=== PATIENT | male | born 1960 | race Caucasian/White ===

== ENCOUNTER 2017-02-05 10:22 | Day surgery (SDC) | payer OTHER ==
[2017-02-01 15:19] VITALS: BMI 44.4
[~2017-02-05 10:22] MED LIST: DEXAMETHASONE SOD PHOSPHATE 10 MG/ML 1 ML VIAL IV ONE; HYDROmorphone 1 MG/ML 1 ML SYRINGE IVP PRN; LACTATED RINGERS 1,000 ML IV SCH; ONDANSETRON 4 MG/2 ML VIAL IVP ONE
[2017-02-05 10:48] VITALS: TEMP 97
[2017-02-05] MEDS ORDERED: LACTATED RINGERS 1,000 ML IV ONE (11:02)
[2017-02-05] MEDS ORDERED: LIDOCAINE 1% INJ 10MG/ML (20 ML MDV) ONE (11:51)
[2017-02-05] MEDS ORDERED: PROPOFOL 10 MG/ML 20 ML VIAL IV ONE (11:51)
--- NOTE | 2017-02-05 12:19 | P.PCN ---
Date of Procedure: 02/05/17 Preoperative Diagnosis: Postoperative Diagnosis: Procedure(s) Performed: Procedure: Colonoscopy and polypectomy Preoperative diagnosis: Screening for neoplasia, patient has history of polyps. Postoperative diagnosis: 2 sigmoid polyps snared but no large polyps or cancer. Preparation: HalfLytely prep. Sedation: Was provided by anesthesia. Brief clinical history: The patient is a 56-year-old male who is scheduled for this evaluation for screening for neoplasia because of history of polyps. His prior exam was around 5 years ago. At this time, he has no abdominal complaints , bleeding or anemia. Procedure: With the patient on his left lateral decubitus position and after informed consent and adequate sedation, the perianal area was inspected and it did not show any fissures or fistulas. There were no masses felt on digital rectal examination. The Olympus CFQ 160L video colonoscope was then inserted in the rectum and the usual fashion and advanced to the cecum. Unfortunately, the preparation was less than ideal and there was thick secretions and fecal debris that were obscuring the view in some areas. I saw two small polyps in the sigmoid which I snared and retrieved by suction. No large polyps or tumors were seen. No obvious diverticular disease was noted either. I retroflexed the endoscope in the rectum before the endoscope was withdrawn. The patient tolerated the procedure well. Plan: The patient was reassured. In light of his preparation, I am recommending repeat exam in 3 years before going again with 5-year schedule. He will follow up with you as planned. Implants: Indications for Procedure: Operative Findings: Description of Procedure:
[2017-02-05 12:30] VITALS: BP 119/87; PULSE 76; RESP 16
== END 2017-02-05 13:12 | disposition home or self-care (01) ==
LOC: ORWHC2ENDO 10:22
DX: Z12.11 Encounter for screening for malignant neoplasm of colon (principal); Z86.010 Personal history of colon polyps; I10 Essential (primary) hypertension; E66.01 Morbid (severe) obesity due to excess calories; Z79.82 Long term (current) use of aspirin; Z79.899 Other long term (current) drug therapy; Z99.89 Dependence on other enabling machines and devices; Z96.643 Presence of artificial hip joint, bilateral; Z68.41 Body mass index [BMI] 40.0-44.9, adult
CPT/HCPCS: 88305; 45385; J2001; J2704

== ENCOUNTER → 2017-07-04 | Outpatient (CLI) | payer OTHER ==
--- NOTE | 2017-07-04 11:36 | PN ---
PROGRESS NOTE DATE OF SERVICE: 07/04/2017 A 56-year-old gentleman who has been followed in the Sleep Center for treatment of obstructive sleep apnea-hypopnea syndrome. Patient continued to use his BiPAP equipment every night without any problems related to the pressure, humidification or mask fitting. I checked his BiPAP unit. Usage is 29/30 nights for more than 4 hours. For the last night usage is 8.7 hours. BiPAP pressure is 12/8. No snoring while on treatment with BiPAP. [place] Sleepiness Scale is 1. MEDICATIONS: Lisinopril, glucosamine, lutein. PHYSICAL EXAM: Patient in no distress. BP 96/58, HR 78, RR 16, height 5, 8, weight 342, BMI 52, temp 96.9, oxygen saturation on room air 99%. OROPHARYNX: Extremely low position of soft palate. ABDOMEN: Obese. Neck Supple, no JVD. Thyroid is not palpable. LUNGS Clear to percussion and to auscultation. Good air exchange. No wheezing or rhonchi. HEART S1, S2 regular. No murmurs, gallops, or rubs. EXTREMITIES No clubbing or cyanosis. CARDIAC CATH LAB TECHNOLOGIST Awake, alert, and oriented X3. Cranial nerves 2 to 7 intact. There is no fasciculation or atrophy. noted. No focal deficits observed. IMPRESSION: 1. Obstructive sleep apnea-hypopnea syndrome on control with BiPAP at a pressure of 12/8 cm of water. Patient demonstrated practically 100% compliance with treatment benefitting from treatment. 2. Morbid obesity, body mass index 52. Patient lost weight from 358 pounds down to 342 pounds now. 3. Status post lap band surgery. 4. Hypertension. 5. History of sinusitis. 6. Status post bilateral total hip replacement. PLAN: 1. Continue treatment with BiPAP every night for the whole night. 2. Prescription for all necessary BiPAP supplies including mask, tube, filters. 3. Continue losing weight. 4. No driving if feeling any sleepiness. Thank you very much for allowing me to participate in the management of your patient. Sincerely, Ming Blue MD, PhD, FAASM Diplomat of [place] [employer] [place] [employer] Instructional Developer of [facility] [place] MMODL / IJN: [id number] /
== END | disposition home or self-care (01) ==
LOC: SLEEP 10:11
PROVIDERS: ATTEND Internal Medicine
DX: G47.33 Obstructive sleep apnea (adult) (pediatric) (principal); E66.01 Morbid (severe) obesity due to excess calories; I10 Essential (primary) hypertension; J32.9 Chronic sinusitis, unspecified; Z96.643 Presence of artificial hip joint, bilateral; Z98.84 Bariatric surgery status; Z79.899 Other long term (current) drug therapy

== ENCOUNTER → 2018-06-12 | Outpatient (CLI) | payer OTHER ==
--- NOTE | 2018-06-12 17:39 | PN ---
PROGRESS NOTE DATE OF SERVICE: 06/12/2018 57-year-old gentleman who has been followed in Sleep Center for treatment of obstructive sleep apnea-hypopnea syndrome. The patient successfully continued to use his CPAP equipment every night for the whole night without significant problems related to mask fitting, pressure or humidification. He is using CPAP equipment every night and no snoring with the machine. [place] Sleepiness Scale today is 1. He is getting his supplies in time. I checked his BiPAP unit. Pressure is 12/8 cm of water. Usage is 100% more than 4 hours. Average usage is 7.5 hours per night. MEDICATIONS: Lisinopril, glucosamine, lutein. PHYSICAL EXAM: Patient in no distress. BP 125/76, HR 79, RR 16, height 5 feet 8 inches, weight 330.0, body mass index 50.7. The patient lost 12 pounds since previous visit. Temperature 97.8, oxygen saturation at room air 100%. Oropharynx extremely low position of soft palate. ABDOMEN: Obese. Neck Supple, no JVD. Thyroid is not palpable. LUNGS Clear to percussion and to auscultation. Good air exchange. No wheezing or rhonchi. HEART S1, S2 regular. No murmurs, gallops, or rubs. ABDOMEN: Obese. Soft and nontender. Bowel sounds are present. No organomegaly appreciated. EXTREMITIES No clubbing or cyanosis. 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 Cranial nerves 2 to 7 intact. There is no fasciculation or atrophy. noted. No focal deficits observed. IMPRESSION: 1. Obstructive sleep apnea-hypopnea syndrome. The patient demonstrated 100% compliance with treatment benefitting from treatment. 2. Morbid obesity. Body mass index 50.7. 3. Status post lap band surgery. 4. Hypertension. 5. History of sinusitis. 6. Status post bilateral total hip replacement. 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 PLAN: 1. Patient will continue to use BiPAP equipment every night for the whole night. 2. Losing weight. 3. Sleep hygiene with regular time bed for at least 8 hours. 4. Precautions related to driving. No driving if feeling sleepiness. Patient is aware about civil and criminal liability for unsafe driving. 5. Will maintain all necessary prescription for CPAP supplies including mask, tube, filters. Thank you very much for allowing me to participate in management of your patient. Sincerely, Ming Blue MD, PhD, FAASM Diplomat of [place] [employer] Specialties [place] Board of Internal Medicine Bender Helper of [facility] [place] MMPAMELA / ALCON: [id number] /
== END | disposition home or self-care (01) ==
LOC: SLEEP 14:35
PROVIDERS: ATTEND Internal Medicine
DX: G47.33 Obstructive sleep apnea (adult) (pediatric) (principal); E66.01 Morbid (severe) obesity due to excess calories; I10 Essential (primary) hypertension; Z68.43 Body mass index [BMI] 50.0-59.9, adult; Z99.89 Dependence on other enabling machines and devices; Z87.09 Personal history of other diseases of the respiratory system; Z96.643 Presence of artificial hip joint, bilateral; Z79.899 Other long term (current) drug therapy; Z98.84 Bariatric surgery status

== ENCOUNTER → 2019-06-04 | Outpatient (CLI) | payer OTHER ==
--- NOTE | 2019-06-04 16:31 | PN ---
PROGRESS NOTE DATE OF SERVICE: 06/04/2019 Bcyer-[id number]-phx gentleman who has been followed in Sleep Center for treatment of obstructive sleep apnea-hypopnea syndrome. The patient continued to use equipment every night for the whole night. No problems with pressure, mask fitting, or humidification. [place] Sleepiness Scale today is only 1. I checked BiPAP unit. Unit is quite old. BiPAP pressure is 12/8 cm of water. Usage is 100% of night, more than 4 hours with average usage 7.6 hours per night. MEDICATIONS: Lisinopril, glucosamine, lutein. PHYSICAL EXAM: During physical examination, patient in no distress. BP 124/89, HR 82, RR 16, height 5 feet 7.5 inches, weight 342 pounds, body mass index 52.7, temperature 97.4, oxygen saturation on room air 98%. OROPHARYNX: Extremely low soft palate. Mallampati IV. HEENT: PERRLA, EOMI, evaluation of oropharynx showed tongue protrudes midline. NECK: Supple, no JVD. Thyroid is not palpable. LUNGS: Clear to percussion and to auscultation. Good air exchange. No wheezing or rhonchi. HEART: S1, S2 regular. No murmurs, gallops, or rubs. ABDOMEN: Soft and nontender. Bowel sounds are present. No organomegaly appreciated. Obese. EXTREMITIES: No clubbing or cyanosis. TRAVEL CONSULTANT: Awake, alert, and oriented X3. Cranial nerves 2 to 7 intact. There is no fasciculation or atrophy. noted. No focal deficits observed. IMPRESSION: 1. Obstructive sleep apnea-hypopnea syndrome. The patient demonstrated 100% compliance with treatment benefiting from treatment. 2. Hypertension. 3. Obesity. Body mass index 52.7. 4. Status post Lap-Band surgery. 5. History of sinusitis. 6. Status post bilateral hip replacement. 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 PLAN: 1. Patient will continue to use BiPAP equipment every night for the whole night. 2. Prescription to replace BiPAP unit with the BiPAP pressure 12/8 cm of water. 3. Followup visit in 30 to 90 days after patient receives new CPAP unit to check compliance with new machine and to check apnea-hypopnea index. 4. Losing weight. 5. No driving if feeling any sleepiness. Thank you very much for allowing me to participate in management of your patient. Sincerely, Ming Blue MD, PhD, FAASM Diplomat of [place] [employer] Specialties [place] Board of Internal Medicine Can Doffer of [facility] [place] MMPAMELA / ALCON: [id number] /
== END | disposition home or self-care (01) ==
LOC: SLEEP 13:28
PROVIDERS: ATTEND Internal Medicine
DX: G47.33 Obstructive sleep apnea (adult) (pediatric) (principal); I10 Essential (primary) hypertension; E66.9 Obesity, unspecified; Z68.43 Body mass index [BMI] 50.0-59.9, adult; Z87.09 Personal history of other diseases of the respiratory system; Z96.643 Presence of artificial hip joint, bilateral; Z46.51 Encounter for fitting and adjustment of gastric lap band; Z79.899 Other long term (current) drug therapy

== ENCOUNTER 2020-01-05 10:25 | Day surgery (SDC) | payer OTHER ==
[2019-12-31 14:33] VITALS: BMI 43.0
[~2020-01-05 10:25] MED LIST changes: -DEXAMETHASONE SOD PHOSPHATE 10 MG/ML 1 ML VIAL IV ONE; -HYDROmorphone 1 MG/ML 1 ML SYRINGE IVP PRN; +LIDOCAINE 1% (10MG/ML) FOR IV START INTRADERMA PRN; -ONDANSETRON 4 MG/2 ML VIAL IVP ONE
[2020-01-05 10:51] VITALS: TEMP 98.4
[2020-01-05] MEDS ORDERED: PROPOFOL 10 MG/ML 20 ML VIAL IV ONE (12:38)
[2020-01-05] MEDS ORDERED: LIDOCAINE 1% INJ 10MG/ML (20 ML MDV) ONE (12:38)
[2020-01-05] MEDS ORDERED: SODIUM CHLORIDE 0.9% 500 ML 500 ML IV ONE (13:03)
--- NOTE | 2020-01-05 13:07 | P.PCN ---
Date of Procedure: 01/05/20 Description of Procedure: BRIEF HISTORY: Patient is a 59-year-old male presented for outpatient colonoscopy for evaluation of a history of colon polyps. He denies any family history of colon cancer, abdominal pain, change in bowel habits or blood per rectum. PROCEDURE PERFORMED: Colonoscopy with polypectomy. PREOPERATIVE DIAGNOSIS: History of colon polyps, last colonoscopy approximately 4 years ago per the patient's recollection. ESTIMATED BLOOD LOSS: Minimal. IV sedation per Anesthesia. PROCEDURE: After informed consent was obtained, the patient, was brought into the endoscopy unit. IV sedation was administered by Anesthesia under continuous monitoring. Digital rectal examination was normal. Initially the Olympus CF-190 flexible video colonoscope was then inserted in the rectum, gradually advanced into the cecum without any difficulty. Careful examination was performed as the scope was gradually being withdrawn. Ileocecal valve and the appendiceal orifice were visualized and appeared normal. Prep was excellent. Mucosa of the cecum, ascending colon, transverse colon, descending colon, sigmoid colon, and rectum appeared normal. 2 diminutive polyps measuring 1 and 2 mm in size removed from the rectum, with cold forcep polypectomy. Retroflexion was performed in the rectum and no lesions were seen, low-grade internal hemorrhoids noted. The patient tolerated the procedure well. IMPRESSION: Normal-appearing colon from rectum to cecum. 2 diminutive rectal polyps removed with cold forceps polypectomy. RECOMMENDATIONS: Findings of this examination were discussed with the patient. Okay to resume diet. Okay to resume medications. Await biopsy results from polypectomies. Recommend repeat colonoscopy in 7 years given history of colon polyps.
[2020-01-05 13:28] VITALS: BP 95/64; PULSE 81; RESP 18
== END 2020-01-05 13:43 | disposition home or self-care (01) ==
LOC: ORWHC2ENDO 10:25
PROVIDERS: ATTEND Internal Medicine
DX: Z12.11 Encounter for screening for malignant neoplasm of colon (principal); K62.1 Rectal polyp; K64.8 Other hemorrhoids; Z86.010 Personal history of colon polyps; I10 Essential (primary) hypertension; G47.33 Obstructive sleep apnea (adult) (pediatric); Z87.891 Personal history of nicotine dependence; Z79.899 Other long term (current) drug therapy; Z79.82 Long term (current) use of aspirin; Z98.890 Other specified postprocedural states; Z96.643 Presence of artificial hip joint, bilateral; Z98.84 Bariatric surgery status; Z99.89 Dependence on other enabling machines and devices
CPT/HCPCS: 45380; J2001; J2704; 88305

== ENCOUNTER → 2020-05-19 | Outpatient (CLI) | payer OTHER ==
--- NOTE | 2020-05-19 20:56 | SFUN ---
SLEEP CENTER FOLLOW UP NOTE DATE OF SERVICE: 05/19/2020 This patient is a 59-year-old gentleman who has been followed in Sleep Center for treatment of obstructive sleep apnea-hypopnea syndrome. The patient continues to use BiPAP equipment every night for the whole night. No snoring with the machine. [place] Sleepiness Scale is 1. He denied any excessive daytime sleepiness. I checked his BiPAP unit. Pressure is 12/8 cm of water. Usage is 30/30 nights for more than 4 hours. Average usage is 7.4 hours per night. Machine does not have information about the apnea-hypopnea index. MEDICATIONS: Lisinopril, aspirin 81 mg once a day, multivitamins. PHYSICAL EXAMINATION: GENERAL: A pleasant patient in no distress. VITAL SIGNS: BP 119/72, HR 96, RR 16, height 5 feet 7-1/2 inches, weight 335.8 pounds, BMI 51.6. The patient has lost about 7 pounds since his previous visit. Temperature 97.6, oxygen saturation on room air 96%. HEENT: PERRLA, EOMI. Evaluation of oropharynx showed tongue protrudes midline. Extremely low position of soft palate. Mallampati IV. NECK: Supple. No JVD. Thyroid is not palpable. LUNGS: Clear to percussion and to auscultation. Good air exchange. No wheezing or rhonchi. HEART: S1, S2 regular. No murmurs, gallops or rubs. ABDOMEN: Obese. EXTREMITIES: No clubbing or cyanosis. MATERIALS SCIENTIST: Awake, alert, and oriented X3. Cranial nerves 2 to 7 intact. There is no fasciculation or atrophy. noted. No focal deficits observed. IMPRESSION: 1. Obstructive sleep apnea-hypopnea syndrome. The patient demonstrated 100% compliance with treatment, benefitting from treatment. 2. Obesity. BMI 51.6. 3. Hypertension. 4. Status post lap band surgery. 5. History of sinusitis. 6. Status post bilateral hip replacement. 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 PLAN: 1. Patient will continue to use PAP equipment every night for the whole night. 2. Sleep hygiene with regular time in bed for at least 7-1/2 to 8 hours. 3. Precautions related to driving. No driving if feeling sleepiness. 4. I will maintain all necessary prescription for PAP supplies including mask, tube, filters. 5. Watching weight. 6. No driving if feeling any sleepiness. The patient promised to follow recommendations. Patient is aware of civil and criminal liability for unsafe driving. 7. Follow-up visit in 6 months or earlier if patient has any problems. Thank you very much for allowing me to participate in the management of your patient. Sincerely, Ming Blue MD, PhD, FAASM Diplomat of [place] [employer] Specialties [place] Board of Internal Medicine Binder Lockstitch of [facility] [place] MMODL / IJN: [id number] /
== END | disposition home or self-care (01) ==
LOC: SLEEP 13:57
PROVIDERS: ATTEND Internal Medicine
DX: G47.33 Obstructive sleep apnea (adult) (pediatric) (principal); I10 Essential (primary) hypertension; E66.9 Obesity, unspecified; Z99.89 Dependence on other enabling machines and devices; Z68.43 Body mass index [BMI] 50.0-59.9, adult; Z98.84 Bariatric surgery status; Z87.09 Personal history of other diseases of the respiratory system; Z96.643 Presence of artificial hip joint, bilateral

== ENCOUNTER → 2020-12-29 | Outpatient (CLI) | payer OTHER ==
--- NOTE | 2020-12-29 21:11 | SFUN ---
SLEEP CENTER FOLLOW UP NOTE DATE OF SERVICE: 12/29/2020 INTERVAL HISTORY: 60-year-old gentleman has been followed in Sleep Center for treatment of obstructive sleep apnea-hypopnea syndrome. The patient continues to use his BiPAP equipment every night for the whole night. No snoring with BiPAP according to the patient. [place] Sleepiness Scale was 2, which is in normal range. I checked BiPAP unit pressure is 12/8 cm of water. Usage is 30/30 nights for more than 4 hours with average usage 7.6 hours per night. MEDICATIONS: Lisinopril 10 mg once a day. Senna 2 tablets a day. Aspirin 81 mg once a day. Probiotic, multivitamins. PHYSICAL EXAMINATION: GENERAL: Patient in no distress. BP 123/68, HR 78, RR 16, height 5 feet and 7.5, weight 331. Patient lost 4 pounds since previous visit. Body mass index 51. Temperature 97.3, oxygen saturation at room air 99%. HEENT: PERRLA, EOMI. Oropharynx extremely low position of soft palate. Mallampati IV. NECK: Supple, no JVD. Thyroid is not palpable. LUNGS: Clear to percussion and to auscultation. Good air exchange. No wheezing or rhonchi. HEART: S1, S2 regular. No murmurs, gallops, or rubs. ABDOMEN: Obese. Soft and nontender. Bowel sounds are present. No organomegaly appreciated. EXTREMITIES: No clubbing or cyanosis. FIELD UNDERWRITER: Awake, alert, and oriented X3. Cranial nerves 2 to 7 intact. There is no fasciculation or atrophy. noted. No focal deficits observed. IMPRESSION: 1. Obstructive sleep apnea-hypopnea syndrome. Patient demonstrated 100% compliance with treatment benefitting from treatment. 2. BMI 51.0. Patient lost 4 pounds since previous visit. 3. Hypertension. 4. Status post lap band surgery. 5. History of sinusitis. 6. Status post bilateral hip replacement. 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 PLAN: 1. The patient's CPAP unit does not have reading for apnea-hypopnea index. The to replace unit in the future. 2. Sleep hygiene with regular time in bed for at least 7-1/2 to 8 hours. 3. Precautions related to driving. No driving if feeling sleepiness. 4. I will maintain all necessary prescription for PAP supplies including mask, tube, filters. 5. Watching weight. 6. Follow-up visit in 6 months or earlier if patient has any problems. 7. No driving if feels any sleepiness. The patient promised to follow recommendation. Patient is aware about civil and criminal liability for unsafe driving. Time I spent with the patient and in documentation for more than 30 minutes. Thank you very much for allowing me to participate in management of your patient. Sincerely, Ming Blue MD, PhD, FAASM Diplomat of [place] [employer] Specialties [place] [employer] of Internal Medicine Malariologist of [facility] [place] MMODL / IJN: [id number] /
== END ==
LOC: SLEEP 10:10
PROVIDERS: ATTEND Internal Medicine
DX: G47.33 Obstructive sleep apnea (adult) (pediatric) (principal); I10 Essential (primary) hypertension; E66.9 Obesity, unspecified; Z98.84 Bariatric surgery status; Z87.09 Personal history of other diseases of the respiratory system; Z96.643 Presence of artificial hip joint, bilateral; Z68.43 Body mass index [BMI] 50.0-59.9, adult; Z79.899 Other long term (current) drug therapy

== ENCOUNTER → 2022-02-01 | Outpatient (CLI) | payer OTHER ==
--- NOTE | 2022-02-01 15:31 | P.PN ---
Subjective DATE: 02/01/2022 FOLLOW UP VISIT. Patient with obstructive sleep apnea hypopnea syndrome return to sleep center for follow-up visit. Information from previous visit have been reviewed. Patient is using PAP equipment every night for the whole night, getting PAP supplies in time. The patient does not have significant problems with the mask, PAP unit and humidification. [place] sleepiness scale is 1. I checked BiPAP unit. BiPAP unit pressure 12/8 cm H2O. Usage is 100 % for more then 4 hours, average 6.9 hours per night. Unit is old no information about apnea-hypopnea index and leak. MEDICATIONS:1. Lisinopril once a day 2. Aspirin 81 mg once a day 3. Probiotics During physical exam: GENERAL: A pleasant patient without any distress. VITAL SIGNS: BP 116/83, HR 66, RR 18 , weight 340.2, patient increase weight on 9 pounds, temperature 97.2, oxygen saturation at room air 97 % . HEENT: PERRLA, EOMI.low position of soft palate, Mallapati 4 . NECK: Supple. No JVD. LUNGS: Clear to percussion and to auscultation. Good air exchange. No wheezing or rhonchi. HEART: S1, S2 regular. ABDOMEN: Soft and nontender. Obese EXTREMITIES: No clubbing or cyanosis. LAPPER: Awake, alert, and oriented x3. No focal deficit. Impressions: 1. Obstructive sleep apnea-hypopnea syndrome. Patient demonstrated great compliance with treatment, benefiting from treatment. BiPAP unit is old, does not have information about apnea-hypopnea index. 2. Obesity patient increase his weight on 9 pounds comparing to the previous visit. 3. Hypertension. 4. Status post lap band surgery. 5. Status post bilateral hip replacement. 6. History of sinusitis. 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 . Plan: 1. Continue using PAP equipment every night for the whole night. Prescription for replacement of BiPAP unit. 2. To change air filter at least 1-2 times per month. 3. PAP unit should stay lower then position of the head. 4. Advised patient to remove all remaining water from humidifier canister daily and make it dry after each usage. Refill canister with fresh distilled water before each usage. 5. Sleep hygiene with regular time in bed for at least 8 hours. 6. Precautions related to driving. No driving if feel any sleepiness. 7. I will maintain prescription for PAP supplies including mask, tube, filters. 8. Follow up visit in 12 months after patient will get new BiPAP unit. 9. Watching and losing weight. Thank you very much for allowing me to participate in the management of your patient. Ming Blue MD, PhD, FAASM. Diplomat of [place] [employer], Sleep Medicine Board by [place] [employer] Medicine Bench Assembly Inspector of [facility] [place]
== END ==
LOC: SLEEP 14:59
PROVIDERS: ATTEND Internal Medicine
DX: G47.33 Obstructive sleep apnea (adult) (pediatric) (principal); Z99.89 Dependence on other enabling machines and devices; E66.9 Obesity, unspecified; I10 Essential (primary) hypertension; Z98.84 Bariatric surgery status; Z96.643 Presence of artificial hip joint, bilateral; Z87.09 Personal history of other diseases of the respiratory system; Z79.899 Other long term (current) drug therapy; Z87.891 Personal history of nicotine dependence

== ENCOUNTER 2023-04-14 12:11 | Emergency (ER) | payer OTHER ==
[2023-04-14] MEDS ORDERED: LIDOCAINE 1% INJ 10MG/ML (20 ML MDV) SQ ONE (12:46)
[2023-04-14] MEDS ORDERED: BACITRACIN OINT 1 EACH PACKET TOPICAL ONE (13:10)
[2023-04-14] MEDS ORDERED: DIPH,PERTUS(ACELL)TETVAC-LF 0.5 ML VIAL IM ONE (13:10)
--- NOTE | 2023-04-14 13:12 | ED ---
Wound/Laceration HPI - General Chief Complaint: Wound/Laceration Stated Complaint: right finger cut Time Seen by Provider: 04/14/23 12:31 Source: patient, RN notes reviewed Mode of arrival: ambulatory Limitations: no limitations - History of Present Illness Initial Comments: 62-year-old male presents emergency Department chief complaint of finger lacerat ion right index finger. Patient states he was using a knife to cut some visit denies states it slipped cutting his finger. Patient states he is not up-to-date on his tetanus. Patient denies any decreased range of motion no paresthesias patient offers no complaints. - Related Data Home Medications Medication Instructions Recorded Confirmed Aspirin [Adult Low Dose Aspirin EC] 81 mg PO DAILY 02/01/17 01/05/20 lisinopriL [Zestril] 10 mg PO PC-SUPPER 02/05/17 01/05/20 Cholecalciferol (Vitamin D3) 50 mcg PO DAILY 12/31/19 01/05/20 [Vitamin D3] Lactobacillus Acidophilus 1 each PO DAILY 12/31/19 01/05/20 [Acidophilus] Sennosides/Docusate Sodium 2 each PO DAILY 12/31/19 01/05/20 [Senna-S Laxative Tablet] Allergies Allergy/AdvReac Type Severity Reaction Status Date / Time No Known Allergies Allergy Verified 04/14/23 12:19 Review of Systems ROS Statement: Those systems with pertinent positive or pertinent negative responses have been documented in the HPI. ROS Other: All systems not noted in ROS Statement are negative. Past Medical History Past Medical History: Hypertension, Sleep Apnea/CPAP/BIPAP Additional Past Medical History / Comment(s): uses BIPAP, hx. colon polyps History of Any Multi-Drug Resistant Organisms: None Reported Past Surgical History: Bariatric Surgery, Joint Replacement Additional Past Surgical History / Comment(s): monica hip replacements, lap band, sinus surg., deviated septum repair Past Anesthesia/Blood Transfusion Reactions: No Reported Reaction Past Psychological History: No Psychological Hx Reported Smoking Status: Never smoker Past Alcohol Use History: None Reported Past Drug Use History: None Reported - Past Family History Father Family Medical History: Cancer Additional Family Medical History / Comment(s): lymphoma General Exam Limitations: no limitations General appearance: alert, in no apparent distress Head exam: Present: atraumatic, normocephalic, normal inspection Respiratory exam: Present: normal lung sounds bilaterally. Absent: respiratory distress, wheezes, rales, rhonchi, stridor Cardiovascular Exam: Present: regular rate, normal rhythm, normal heart sounds. Absent: systolic murmur, diastolic murmur, rubs, gallop, clicks Extremities exam: Present: other (Right hand index finger distal portion there is a 1 cm laceration full range of motion neurovascular intact) Course Vital Signs 04/14/23 12:17 Temperature 98.2 F Pulse Rate 105 H Respiratory 20 Rate Blood Pressure 111/67 O2 Sat by Pulse 96 Oximetry Procedures - Laceration Laceration #1 Consent Obtained: verbal consent Indication: laceration Site: hand (Right hand second digit) Size (cm): 1 Description: linear Depth: simple, single layer Anesthetic Used: lidocaine 1%, without epi Anesthesia Technique: local infiltration Amount (mls): 3 Pre-repair: wound explored, irrigated extensively, deep structures intact Type of Sutures: nylon Size of Sutures: 4-0 Number of Sutures: 3 Technique: simple, interrupted Patient Tolerated Procedure: well, no complications Medical Decision Making - Medical Decision Making Was pt. sent in by a medical professional or institution (Dr. PA, ACTUARY, urgent care, hospital, or detention...) When possible be specific @ -No Did you speak to anyone other than the patient for history (EMS, parent, family, police, friend...)? What history was obtained from this source @ -No Did you review nursing and triage notes (agree or disagree)? Why? @ -I reviewed and agree with nursing and triage notes Were old charts reviewed (outside hosp., previous admission, EMS record, old EKG, old radiological studies, urgent care reports/EKG's, detention records)? Report findings @ -No old charts were reviewed Differential Diagnosis (chest pain, altered mental status, abdominal pain women, abdominal pain men, vaginal bleeding, weakness, fever, dyspnea, syncope, h eadache, dizziness, GI bleed, back pain, seizure, CVA, palpatations, mental health, musculoskeletal)? @ -Finger laceration, tendon injury EKG interpreted by me (3pts min.). @ -None X-rays interpreted by me (1pt min.). @ -None done CT interpreted by me (1pt min.). @ -None done U/S interpreted by me (1pt. min.). @ -None done What testing was considered but not performed or refused? (CT, X-rays, U/S, labs)? Why? @ -None What meds were considered but not given or refused? Why? @ -None Did you discuss the management of the patient with other professionals (professionals i.e. , PA, ACTUARY, lab, RT, psych nurse, social media senior associate, afterschool, teacher, admissions officer, family caseworker)? Give summary @ -No Was smoking cessation discussed for >3mins.? @ -No Was critical care preformed (if so, how long)? @ -No Were there social determinants of health that impacted care today? How? (Homelessness, low income, unemployed, alcoholism, drug addiction, transportation, low edu. Level, literacy, decrease access to med. care, prison, rehab)? @ -No Was there de-escalation of care discussed even if they declined (Discuss DNR or withdrawal of care, Hospice)? DNR status @ -No What co-morbidities impacted this encounter? (DM, HTN, Smoking, COPD, CAD, Cancer, CVA, ARF, Chemo, Hep., AIDS, mental health diagnosis, sleep apnea, morbid obesity)? @ -None Was patient admitted / discharged? Hospital course, mention meds given and route, prescriptions, significant lab abnormalities, going to OR and other pertinent info. @ -Discharge patient had finger laceration repaired with no complications patient has full range of motion less than tetanus was updated wound care instructions were provided. Undiagnosed new problem with uncertain prognosis? @ -No Drug Therapy requiring intensive monitoring for toxicity (Heparin, Nitro, Insulin, Cardizem)? @ -No Were any procedures done? @ -No Diagnosis/symptom? @ -Finger laceration, right Acute, or Chronic, or Acute on Chronic? @ -Acute Uncomplicated (without systemic symptoms) or Complicated (systemic symptoms)? @ -Uncomplicated Side effects of treatment? @ -No Exacerbation, Progression, or Severe Exacerbation? @ -No Poses a threat to life or bodily function? How? (Chest pain, [place], [place], pneumonia, PE, COPD, DKA, ARF, appy, cholecystitis, CVA, Diverticulitis, Homicidal, Suicidal, threat to staff... and all critical care pts) @ -No] Disposition Clinical Impression: Laceration of right index finger Disposition: HOME SELF-CARE Condition: Stable Instructions (If sedation given, give patient instructions): Care For Your Stitches (DC), Finger Laceration (ED) Additional Instructions: Have sutures removed in 10 days. Please return to the Emergency Department if symptoms worsen or any other concerns. Is patient prescribed a controlled substance at d/c from ED?: No Referrals: Gautam Montelongo DO [Primary Care Provider] - 1-2 days Time of Disposition: 13:11
[2023-04-14 13:49] VITALS: BP 115/72; PULSE 90; RESP 18; TEMP 98.1
== END 2023-04-14 13:36 | disposition home or self-care (01) ==
LOC: EC 12:11
DX: S61.210A Laceration without foreign body of right index finger without damage to nail, initial encounter (principal); I10 Essential (primary) hypertension; G47.30 Sleep apnea, unspecified; Z79.82 Long term (current) use of aspirin; Z79.899 Other long term (current) drug therapy; Z23 Encounter for immunization; W26.0XXA Contact with knife, initial encounter
CPT/HCPCS: 12001; 99282; 90471; 90715; J2001

== ENCOUNTER → 2023-12-27 | Outpatient (CLI) | payer MEDICARE ==
[2023-12-27 17:49] LABS: Blood Urea Nitrogen 17.4 mg/dL (9.0-27.0); Calcium 9.8 mg/dL (8.7-10.3); Carbon Dioxide 20.5 mmol/L (21.6-31.8); Chloride 110 mmol/L (96-109); Glucose 103 mg/dL (70-110); Potassium 4.6 mmol/L (3.5-5.5); Sodium 142 mmol/L (135-145)
== END | disposition home or self-care (01) ==
LOC: LABWHC1 10:55
PROVIDERS: ATTEND Family Medicine
DX: I10 Essential (primary) hypertension (principal); E66.01 Morbid (severe) obesity due to excess calories
CPT/HCPCS: 36415; 80048; 83036

== ENCOUNTER 2024-04-29 10:09 | Emergency (ER) | payer MEDICARE ==
[2024-04-29 10:28] VITALS: RESP 18
[2024-04-29] MEDS: ORPHENADRINE 30 MG/ML 2 ML VIAL IM STA (10:42)
[2024-04-29] MEDS: KETOROLAC 15 MG/ML 1 ML VIAL IM STA (10:42)
--- NOTE | 2024-04-29 10:43 | ED ---
Back Pain HPI - General Chief Complaint: Back Pain/Injury Stated Complaint: back pain Time Seen by Provider: 04/29/24 10:30 Source: patient, RN notes reviewed Mode of arrival: ambulatory Limitations: physical limitation - History of Present Illness Initial Comments: This is a 63-year-old male who presents to the emergency department for back pain. States that a week ago he may have done something to injure his back, he cannot recall, and he was having pain in the lower lumbar spine area. That started to improve yesterday and he thought he was doing better. However, today when he woke up he started to have pain in the right lower back with radiation around to the front of the right leg. States that his right leg feels like it is burning. Denies any history of sciatica or similar symptoms in the past. Denies any loss of bowel/bladder control or saddle anesthesia. Not taking any medication for his symptoms. MD Complaint: back pain - Related Data Home Medications Medication Instructions Recorded Confirmed Aspirin [Adult Low Dose Aspirin EC] 81 mg PO DAILY 02/01/17 01/05/20 lisinopriL [Zestril] 10 mg PO PC-SUPPER 02/05/17 01/05/20 Cholecalciferol (Vitamin D3) 50 mcg PO DAILY 12/31/19 01/05/20 [Vitamin D3] Lactobacillus Acidophilus 1 each PO DAILY 12/31/19 01/05/20 [Acidophilus] Sennosides/Docusate Sodium 2 each PO DAILY 12/31/19 01/05/20 [Senna-S Laxative Tablet] Previous Rx's Medication Instructions Recorded RX: Lidocaine 5% Patch [Lidoderm 1 patch TOPICAL DAILY PRN #30 patch 04/29/24 5% Patch] RX: predniSONE 50 mg PO DAILY 5 Days #5 tab 04/29/24 methocarbamoL [Robaxin-750] 1,500 mg PO TID PRN #30 tab 04/29/24 Allergies Allergy/AdvReac Type Severity Reaction Status Date / Time cephalexin [From Keflex] Allergy Rash/Hives Verified 04/29/24 10:26 Review of Systems ROS Statement: Those systems with pertinent positive or pertinent negative responses have been documented in the HPI. ROS Other: All systems not noted in ROS Statement are negative. Past Medical History Past Medical History: Hypertension, Sleep Apnea/CPAP/BIPAP Additional Past Medical History / Comment(s): uses BIPAP, hx. colon polyps History of Any Multi-Drug Resistant Organisms: None Reported Past Surgical History: Bariatric Surgery, Joint Replacement Additional Past Surgical History / Comment(s): monica hip replacements, lap band, sinus surg., deviated septum repair Past Anesthesia/Blood Transfusion Reactions: No Reported Reaction Past Psychological History: No Psychological Hx Reported Smoking Status: Never smoker Past Alcohol Use History: None Reported Past Drug Use History: None Reported - Past Family History Father Family Medical History: Cancer Additional Family Medical History / Comment(s): lymphoma General Exam Limitations: physical limitation General appearance: alert, in no apparent distress Head exam: Present: atraumatic, normocephalic, normal inspection Respiratory exam: Present: normal lung sounds bilaterally. Absent: respiratory distress, wheezes, rales, rhonchi, stridor Cardiovascular Exam: Present: regular rate, normal rhythm, normal heart sounds. Absent: systolic murmur, diastolic murmur, rubs, gallop, clicks Back exam: Present: other (Tenderness to palpation over the right lower back. 2+ DP and PT pulses.) Neurological exam: Present: alert, oriented X3, CN II-XII intact Psychiatric exam: Present: normal affect, normal mood Skin exam: Present: warm, dry, intact, normal color. Absent: rash Course Vital Signs 04/29/24 04/29/24 10:26 11:50 Temperature 97.7 F 98.0 F Pulse Rate 75 78 Respiratory 18 18 Rate Blood Pressure 144/85 136/80 O2 Sat by Pulse 98 99 Oximetry Medical Decision Making - Medical Decision Making This is a 63-year-old male who presents to the emergency department for back pain. Was pt. sent in by a medical professional or institution? @ -No Did you speak to anyone other than the patient for history? @ -No Did you review nursing and triage notes? @ -Yes, and I agree, it is accurate with regards to the patient's symptoms. Were old charts reviewed? @ -No Differential Diagnosis? @ -Differential Back Pain: Strain, zoster, cauda equina syndrome, epidural abscess, vertebral osteomyelitis, discitis, fracture, subluxation, disc herniation, DJD, spinal stenosis, dissection, AAA, pancreatitis, peptic ulcer disease, pyelonephritis, kidney stone, this is not meant to be an all-inclusive list. EKG interpreted by me (3pts min.)? @ -Not obtained X-rays interpreted by me (1pt min.)? @ -X-ray of the lumbar spine obtained. My interpretation identifies no acute fractures. CT interpreted by me (1pt min.)? @ -Not obtained U/S interpreted by me (1pt. min.)? @ -Not obtained What testing was considered but not performed? (CT, X-rays, U/S, labs)? Why? @ -None What meds were considered but not given? Why? @ -None Did you discuss the management of the patient with other professionals? @ -No Did you reconcile home meds? @ -No Was smoking cessation discussed for >3mins.? @ -No Was critical care preformed (if so, how long)? @ -No Were there social determinants of health that impacted care today? How? (Homelessness, low income, unemployed, alcoholism, drug addiction, transportation, low edu. Level, literacy, decrease access to med. care, [facility], rehab)? @ -No Was there de-escalation of care discussed even if they declined? (Discuss DNR or withdrawal of care, Hospice)? @ -No What co-morbidities impacted this encounter? (DM, HTN, Smoking, COPD, CAD, Cancer, CVA, Hep., AIDS, mental health diagnosis, sleep apnea, morbid obesity)? @ -HTN, morbid obesity Was patient admitted / discharged? @ -Admitted. X-ray of the lumbar spine obtained demonstrating degenerative changes without any other acute process. Symptoms treated in the emergency department. Advised that this is likely related to sciatica given the radicular nature and burning sensation. Prescription for 5-day course of prednisone, Robaxin, and lidocaine patches provided. Also advised close follow-up with his PCP. Patient discharged home in stable condition. Case discussed with ED attending Dr. Cox. Return precautions reviewed in depth, the patient is instructed to return to the emergency department with any new, worsening, or concerning symptoms. Patient verbalized understanding. Undiagnosed new problem with uncertain prognosis? @ -None Drug Therapy requiring intensive monitoring for toxicity (Heparin, Nitro, Insulin, Cardizem)? @ -None Were any procedures done? @ -None Diagnosis/symptom? @ -Sciatica, lumbar radiculopathy Acute, or Chronic, or Acute on Chronic? @ -Acute Uncomplicated (without systemic symptoms) or Complicated (systemic symptoms)? @ -Uncomplicated Side effects of treatment? @ -None Exacerbation, Progression, or Severe Exacerbation] @ -Not applicable Poses a threat to life or bodily function? @ -No - Radiology Data Radiology results: report reviewed, image reviewed Disposition Clinical Impression: Sciatica, Lumbar radiculopathy Disposition: HOME SELF-CARE Instructions (If sedation given, give patient instructions): Sciatica (ED), Acute Low Back Pain (ED), Lumbar Radiculopathy (ED) Additional Instructions: Return to the emergency department with any new, worsening, or concerning symptoms. Take the prednisone daily for 5 days. Take the Robaxin as 1 to 2 tablets up to 3-4 times daily. You can also apply the lidocaine patches daily. Follow up with your primary care provider in 1-2 days. Prescriptions: RX: Lidocaine 5% Patch [Lidoderm 5% Patch] 1 patch TOPICAL DAILY PRN #30 patch PRN Reason: Pain RX: predniSONE 50 mg PO DAILY 5 Days #5 tab methocarbamoL [Robaxin-750] 1,500 mg PO TID PRN #30 tab PRN Reason: Pain Is patient prescribed a controlled substance at d/c from ED?: No Referrals: Gautam Montelongo DO [Primary Care Provider] - 1-2 days Time of Disposition: 11:42
[2024-04-29] MEDS: LIDOCAINE 4% PATCH TOPICAL ONE (10:45)
--- NOTE | 2024-04-29 11:18 | XR ---
EXAMINATION TYPE: XR lumbar spine 2 or 3V DATE OF EXAM: 04/29/2024 CLINICAL HISTORY: pain TECHNIQUE: Three views of the lumbar spine are submitted. COMPARISON: None. FINDINGS: There are 5 lumbar type vertebral bodies identified. No acute fracture. Levocurvature of the lumbar spine with apex at L3. No spondylolisthesis. Vertebral body heights are within normal limits. Multi level disc space narrowing with endplate sclerosis and anterior osteophytosis. Multilevel facet arthr opathy. The overlying soft tissue appears unremarkable. IMPRESSION: 1. No acute fracture or dislocation is seen in the lumbar spine. 2. Moderate multilevel degenerative disease and facet arthropathy. 3. Levoscoliotic curvature of the lumbar spine. [facility], , 04/29/2024 11:16 AM
[2024-04-29] MEDS: ACET/COD 300 MG/30 MG STARTER PACK 6 TAB BTL PO STA (11:46)
[2024-04-29 11:52] VITALS: BP 136/80; PULSE 78; TEMP 98
== END 2024-04-29 11:54 | disposition home or self-care (01) ==
LOC: EC 10:09
CPT/HCPCS: 72100; 96372; 99283

== ENCOUNTER → 2024-06-11 | Outpatient (CLI) | payer MEDICARE ==
[2024-06-11 16:39] VITALS: BP 117/78; PULSE 81; RESP 18; TEMP 97.9
--- NOTE | 2024-06-11 16:59 | P.PROGSL ---
Subjective DATE: 06/11/2024 FOLLOW UP VISIT. Patient with obstructive sleep apnea hypopnea syndrome return to sleep center for follow-up visit. Information from previous visit have been reviewed. Patient is using PAP equipment every night for the whole night, getting PAP supplies in time. The patient does not have significant problems with the mask, PAP unit and humidification. [place] sleepiness scale is 4. I checked information from PAP unit. BPAP unit pressure 15/7 cm H2O. Usage is 100% for more then 4 hours, average 7.5 hours per night. Leak is slightly increased to 31.2 l/m, which is in acceptable range. Apnea Hypopnea Index is 1.5, which is normal. MEDICATIONS have been reviewed, please see below. During physical exam: GENERAL: A pleasant patient without any distress. VITAL SIGNS: Please see below, weight is 340.6 lbs. HEENT: PERRLA, EOMI.low position of soft palate, Mall[place]ati 4 . NECK: Supple. No JVD. LUNGS: Clear to percussion and to auscultation. Good air exchange. No wheezing or rhonchi. HEART: S1, S2 regular. ABDOMEN: Soft and nontender. Obese EXTREMITIES: No clubbing or cyanosis. MEDICAL ASSISTANT PER DIEM: Awake, alert, and oriented x3. No focal deficit. Impressions: 1. Obstructive sleep apnea-hypopnea syndrome. Patient demonstrated great compliance with treatment, benefiting from treatment. 2. Obesity, BMI 52.3. 3. Hypertension. 4. Status post lap band surgery. 5. Status post bilateral hip replacement. 6. History of sinusitis. Plan: 1. Continue using PAP equipment every night for the whole night. 2. Sleep hygiene with regular time in bed for at least 7.5-8 hours 3. PAP unit should stay lower then position of the head. 4. Advised patient to remove all remaining water from humidifier canister daily and make it dry after each usage. Refill canister with fresh distilled water before each usage. 5. Watching and losing weight. 6. Precautions related to driving. No driving if feel any sleepiness. 7. I will maintain prescription for PAP supplies including mask, tube, filters. 8. Follow up visit in 8 months or earlier if patient has any problems. Thank you very much for allowing me to participate in the management of your patient. Ming Blue MD, PhD, FAASM. Diplomat of [place] [employer], Sleep Medicine Board by [employer] [facility] [place] Objective - Vital Signs Vital Signs: Vital Signs Temp 97.9 F 06/11/24 16:36 Pulse 81 06/11/24 16:36 Resp 18 06/11/24 16:36 BP 117/78 06/11/24 16:36 Pulse Ox 97 06/11/24 16:36 FiO2 Intake & Output 06/10/24 06/11/24 06/11/24 18:59 06:59 18:59 Weight 154.392 kg Home Medications: Home Medications Medication Instructions Recorded Confirmed Type Aspirin [Adult Low Dose Aspirin EC] 81 mg PO DAILY 02/01/17 01/05/20 History lisinopriL [Zestril] 10 mg PO PC-SUPPER 02/05/17 01/05/20 History Cholecalciferol (Vitamin D3) 50 mcg PO DAILY 12/31/19 01/05/20 History [Vitamin D3] Lactobacillus Acidophilus 1 each PO DAILY 12/31/19 01/05/20 History [Acidophilus] Sennosides/Docusate Sodium 2 each PO DAILY 12/31/19 01/05/20 History [Senna-S Laxative Tablet] Lidocaine 5% Patch [Lidoderm 5% 1 patch TOPICAL DAILY PRN #30 patch 04/29/24 Rx Patch] methocarbamoL [Robaxin-750] 1,500 mg PO TID PRN #30 tab 04/29/24 Rx predniSONE 50 mg PO DAILY 5 Days #5 tab 04/29/24 Rx
== END ==
LOC: 3 N SLEEP 16:01
PROVIDERS: ATTEND Internal Medicine
DX: G47.33 Obstructive sleep apnea (adult) (pediatric) (principal); I10 Essential (primary) hypertension; E66.9 Obesity, unspecified; Z68.43 Body mass index [BMI] 50.0-59.9, adult; Z96.643 Presence of artificial hip joint, bilateral; Z98.84 Bariatric surgery status; Z88.8 Allergy status to other drugs, medicaments and biological substances; Z87.891 Personal history of nicotine dependence; Z87.09 Personal history of other diseases of the respiratory system
CPT/HCPCS: 99212

== ENCOUNTER → 2024-07-02 | Outpatient (CLI) | payer MEDICARE ==
[2024-07-02 12:11] LABS: Appearance,Urine Clear (Clear); Bilirubin,Urine Negative (Negative); Blood,Urine Negative (Negative); Color,Urine Light Yellow; Glucose,Urine (UA) Negative (Negative); Ketones,Urine Negative (Negative); Leukocyte Esterase,Urine Negative (Negative); Nitrite,Urine Negative (Negative); PH, Urine 5.5 (5.0-8.0); Protein,Urine Negative (Negative); Specific Gravity,Urine 1.023 (1.001-1.035); Urobilinogen,Urine <2.0 mg/dL (<2.0)
[2024-07-02 15:57] LABS: HCT 45.8 % (39.6-50.0); HGB 15.5 g/dL (13.0-17.0); MCH 30.5 pg (27.0-32.0); MCHC 33.8 g/dL (32.0-37.0); Mean Platelet Volume 9.6 FL (9.5-12.2); NRBC Per 100 WBC 0 X 10*3/uL (0.00-0.01); Platelet Count 279 X 10*3/uL (140-440); RBC 5.09 X 10*6/uL (4.40-5.60); RDW 13.1 % (11.5-14.5); WBC 4.38 X 10*3/uL (4.50-10.00)
[2024-07-02 16:19] LABS: BUN/Creat Ratio 19.33 Ratio (12.00-20.00); Blood Urea Nitrogen 17.4 mg/dL (9.0-27.0); Chloride 111 mmol/L (96-109); Chol/HDL Ratio 3.64 Ratio; Glucose 107 mg/dL (70-110); Potassium 4.6 mmol/L (3.5-5.5); Sodium 144 mmol/L (135-145)
[2024-07-02 16:20] LABS: ALT 28 U/L (10-49); AST 28 U/L (14-35); Alkaline Phosphatase 106 U/L (41-126); Calcium 9.4 mg/dL (8.7-10.3); Globulin 2.5 g/dL (1.6-3.3); Prostate Specific Antigen 0.78 ng/mL (0.000-4.500); Total Bilirubin 1.1 mg/dL (0.3-1.2); Total Protein 6.5 g/dL (6.2-8.2)
== END | disposition home or self-care (01) ==
LOC: LABWHC1 11:32
PROVIDERS: ATTEND Family Medicine
DX: I10 Essential (primary) hypertension (principal); N40.0 Benign prostatic hyperplasia without lower urinary tract symptoms; E66.01 Morbid (severe) obesity due to excess calories
CPT/HCPCS: 36415; 80053; 80061; 81003; 82306; 83036; 84153; 84443; 85027